=== PATIENT | male | born 1970 | race Caucasian/White ===

== ENCOUNTER 2018-11-15 10:30 | Outpatient (CLI) | payer BC ==
[~2018-11-15] VITALS: Ht 188 cm; Wt 112.5 kg
[2018-11-15] MEDS ORDERED: MULT-178 PO (10:58)
[2018-11-15] MEDS ORDERED: OMEP40CA36 PO (10:58)
[2018-11-15] MEDS ORDERED: LISI-556 PO (10:58)
[2018-11-15] MEDS ORDERED: ALLO100T PO (10:58)
== END 2018-11-15 11:51 | disposition home or self-care (01) ==
LOC: PREOP 10:30
PROVIDERS: ATTEND Internal Medicine
DX: Z01.818 Encounter for other preprocedural examination (principal)

== ENCOUNTER 2018-11-16 08:45 | Day surgery (SDC) | payer BC ==
--- NOTE | 2018-11-07 08:38 | HISTORY AND PHYSICAL ---
DATE OF SERVICE: COLONOSCOPY HISTORY AND PHYSICAL DATE OF ADMISSION: 11/16/2018. HISTORY OF PRESENT ILLNESS: The patient is a 48-year-old white male, referred by Dr. Javy Ward for his first screening colonoscopy. He may be a slightly higher than average risk due to the fact that he does have a history of multiple basal cell skin cancers. His mother and grandmother have history of breast cancer, albeit postmenopausal and his grandfather had history of basal cell skin cancers and prostate cancer. The patient denies any problems with blood in the stool, although for the past several months, he has noted as I recall after lunch his first meal of the day, bowel urgency without any associated cramping. He has not had any fecal incontinence, but has had a couple of close calls. He does not have nocturnal stool and typically does not have a problem after evening meal, passing a formed stool after lunch, again with urgency. He has had no change in weight and reflux symptoms are under control as long as he takes Prilosec. PAST MEDICAL HISTORY: Other than gastroesophageal reflux, is significant for hypertension as well as past gout for which she is on 100 mg of allopurinol daily with no attack since initiating the medication. X-ray evaluation he reports reveals some evidence for COPD. He does have some past tobaccoism, but he denies regular cough or sputum production and quit smoking in his early 30s. PAST SURGICAL HISTORY: He has had multiple basal cells excised predominantly from his back, he believes seven or eight over the past 10 years, the last one being excised in May of this year. He had tonsillectomy and adenoidectomy in the third grade. 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 He has a 20+ pack year smoking history, again quit in his early 30s. He still does chew. REVIEW OF SYSTEMS: CONSTITUTIONAL: He denies any problems with night sweats, chills, fever or change in weight. CARDIOVASCULAR: He denies chest pain, palpitations, syncope or presyncope. PULMONARY: He denies cough, wheezing, dyspnea on exertion at rest or any regular sputum production. GENITOURINARY: Pertinent for increasing nocturia over the past six months. He reports decrease in stream and dribbling. He has noted no hematuria or pyuria. He does report of intermittent erectile dysfunction, sometimes will lose an erection, but usually is still able to ejaculate. GASTROINTESTINAL: As per HPI. PHYSICAL EXAMINATION: GENERAL: Reveals a pleasant overweight white male in no acute distress. VITAL SIGNS: Weight is 248.8 pounds with a body mass index greater than 30, blood pressure of 130/100. HEENT: Unremarkable. He has a Mallampati class 2 pharyngeal configuration. No posterior pharyngeal erythema is noted. No ulceration or evidence for leukoplakia is noted. NECK: Revealed no JVD, adenopathy or bruits. CHEST: Clear to auscultation. CARDIOVASCULAR: Revealed a regular rate and rhythm without murmur, S3 or S4. ABDOMEN: Soft, supple without mass, organomegaly or tenderness. EXTREMITIES: Reveal no cyanosis, clubbing or edema. ASSESSMENT AND PLAN: 1. The patient is set up for screening colonoscopy on 11/16/2018. Prep instructions were given and questions were answered. 2. Symptoms suggest prostatism. We will be performing a digital rectal evaluation at the time of colonoscopy. 3. Hypertension. He was a little bit anxious about being here, but did discuss lisinopril dose was low and may need to consider increasing the medication based on blood pressure measurements in Dr. Ward's office. 4. Postprandial especially after lunch bowel urgency. We will keep this in consideration at the time of colonoscopy with likely rectal biopsy to rule out microscopic colitis. In addition, the patient does report as I recall intermittent Prilosec usage and there has been no improvement in his post-lunch stool urgency when off the medication. Job ID: [id number] DocumentID: [id number] Dictated Date: 11/07/2018 08:17:32 Library Associate Date: 11/07/2018 08:38:06 Dictated By: PINKY CAI MD
[~2018-11-16] VITALS: Ht 188 cm; Wt 112.5 kg
[2018-11-16] VITALS (11 sets, daily range): BP systolic 128–144; BP diastolic 73–103
[~2018-11-16 08:45] MED LIST: ALLO100T PO; LISI-556 PO; MULT-178 PO; OMEP40CA36 PO
--- OUTSIDE RECORDS SUMMARY | 2018-11-16 08:49 | XMS REPORT ---
Author Author Javy Ward [facility] Address [address] [place], [place] [id number] Care Team Providers Care Electronic Bench Technician Name Role Phone Javy Ward PCP Javy Ward PreferredProvider Allergies and Adverse Reactions Name Reaction Notes No known drug allergy Plan of Treatment Planned Activity Comments Planned Date Planned Time Plan/Goal CBC With Auto Differential 04/18/2017 12:00 AM CMP 04/18/2017 12:00 AM URIC ACID. 04/18/2017 12:00 AM URIC ACID. 04/18/2017 12:00 AM CRP 04/18/2017 12:00 AM Rheumatoid factor screening test 04/18/2017 12:00 AM basal cellcancer Medications Active Name Start Date Estimated Completion Date SIG Comments Bystolic 5 mg oral tablet 10/06/2016 take 1 tablet (5 mg) by oral route once daily omeprazole 40 mg oral capsule,delayed release(DR/EC) 10/06/2016 10/01/2017 take 1 capsule (40 mg) by oral route once daily before a meal for 90 days omeprazole 40 mg oral capsule,delayed release(DR/EC) 11/03/2016 TAKE 1 CAPSULE BY MOUTH ONCE A DAY Augmentin 875-125 mg oral tablet 04/18/2017 take 1 tablet by oral route every 12 hours for 7 days Problem List Description Status Onset Hypertension Active Vital Signs Date Time BP-Sys(mm[Hg] BP-Cara(mm[Hg]) HR(bpm) RR(rpm) Temp WT HT HC BMI BSA BMI Percentile O2 Sat(%) 04/18/2017 2:15:00 PM 140 mmHg 84 mmHg 87 bpm 20 rpm 97.8 F 255 lbs 74 in 32.74 kg/m2 2.46 m2 97 % 10/31/2016 10:21:00 AM 136 mmHg 80 mmHg 74 bpm 20 rpm 98 % 10/06/2016 3:18:00 PM 172 mmHg 100 mmHg 85 bpm 18 rpm 98 F 254.125 lbs 74 in 32.63 kg/m2 2.45 m2 99 % Social History Name Description Comments Alcohol Light Tobacco Never smoker History of Procedures Not available. Results Summary Not available. History Of Immunizations Not available. History of Past Illness Name Date of Onset Comments COPD Back pain Basal cell carcinoma of other specified sites of skin Hypertension Hypertension Oct 06 2016 3:23PM Basal cell carcinoma Oct 06 2016 3:23PM Basal cell carcinoma Oct 19 2016 10:40AM Postoperative Follow-up Oct 31 2016 10:21AM Sinusitis Apr 18 2017 2:17PM Joint pain Apr 18 2017 2:17PM Payers Insurance Name Company Name Plan Name Plan Number Policy Number Policy Group Number [facility] Date [id number] N/A History of Encounters Visit Date Visit Type Provider 04/18/2017 Office visit Javy Ward MD 10/31/2016 Office visit Hero Ching MD 10/19/2016 Office visit Hero Ching MD 10/06/2016 Office visit Javy Ward MD
--- OUTSIDE RECORDS SUMMARY | 2018-11-16 08:49 | XMS REPORT ---
Author Author Hero Ching [facility] Address [address] [place] [id number] Care Team Providers Care Lamp Stack Developer Name Role Phone Hero Ching PCP Javy Ward PreferredProvider Allergies and Adverse Reactions Name Reaction Notes No known drug allergy Plan of Treatment Planned Activity Comments Planned Date Planned Time Plan/Goal basal cellcancer Medications Active Name Start Date Estimated Completion Date SIG Comments omeprazole 40 mg oral capsule,delayed release(DR/EC) 11/03/2016 TAKE 1 CAPSULE BY MOUTH ONCE A DAY allopurinol 100 mg oral tablet 04/19/2017 take 1 tablet (100 mg) by oral route once daily Allopurinol 100MG Oral Tablet 10/17/2017 TAKE 1 TABLET BY MOUTH ONCE DAILY lisinopril 5 mg oral tablet 01/11/2018 TAKE 1 TABLET BY MOUTH ONCE A DAY omeprazole 40 mg oral capsule,delayed release(DR/EC) 07/30/2018 TAKE 1 CAPSULE BY MOUTH ONCE A DAY Discontinued Name Start Date Discontinued Date SIG Comments Bystolic 5 mg oral tablet 10/06/2016 06/29/2017 take 1 tablet (5 mg) by oral route once daily Augmentin 875-125 mg oral tablet 04/18/2017 06/29/2017 take 1 tablet by oral route every 12 hours for 7 days colchicine 0.6 mg oral tablet 04/21/2017 06/29/2017 take 2 tablets (1.2 mg) by oral route initially, then take 1 tab (0.6 mg ) hourly for 3 hours indomethacin 75 mg oral capsule, extended release 05/15/2017 06/29/2017 TAKE 3 CAPSULES BY MOUTH THREE TIMES A DAY NEEDED Problem List Description Status Onset Hypertension Active Vital Signs Date Time BP-Sys(mm[Hg] BP-Cara(mm[Hg]) HR(bpm) RR(rpm) Temp WT HT HC BMI BSA BMI Percentile O2 Sat(%) 05/14/2018 2:31:00 PM 152 mmHg 106 mmHg 87 bpm 20 rpm 97.9 F 264 lbs 74 in 33.8952 kg/m 2.5004 m 98 % 06/29/2017 11:12:00 AM 144 mmHg 96 mmHg 84 bpm 16 rpm 97.3 F 253.5 lbs 74 in 32.55 kg/m2 2.45 m2 95 % 04/18/2017 2:15:00 PM 140 mmHg 84 mmHg 87 bpm 20 rpm 97.8 F 255 lbs 74 in 32.7397 kg/m 2.4575 m 97 % 10/31/2016 10:21:00 AM 136 mmHg 80 mmHg 74 bpm 20 rpm 98 % 10/06/2016 3:18:00 PM 172 mmHg 100 mmHg 85 bpm 18 rpm 98 F 254.125 lbs 74 in 32.6274 kg/m 2.45 m2 99 % Social History Name Description Comments Alcohol Light Tobacco Never smoker History of Procedures Date Ordered Description Order Status 04/18/2017 12:00 AM COMPLETE CBC W/AUTO DIFF WBC Returned 04/18/2017 12:00 AM COMPREHEN METABOLIC PANEL Returned 04/18/2017 12:00 AM ASSAY OF BLOOD/URIC ACID Returned 04/18/2017 12:00 AM ASSAY OF URINE/URIC ACID Returned 04/18/2017 12:00 AM C-REACTIVE PROTEIN Returned 04/18/2017 12:00 AM RHEUMATOID FACTOR TEST QUAL Returned 04/18/2017 12:00 AM Decadron 8mg Injection Reviewed 04/18/2017 12:00 AM Depo-Medrol 80mg Injection Reviewed Results Summary Not available. History Of Immunizations [...] 2:17PM Joint pain Apr 18 2017 2:17PM Essential Hypertension Jun 29 2017 11:13AM Skin Neoplasm of uncertain behavior May 14 2018 2:32PM History of basal cell cancer May 14 2018 2:32PM Postoperative Follow-up Jun 04 2018 2:53PM Payers Insurance Name Company Name Plan Name Plan Number Policy Number Policy Group Number Start Date BCBS [facility] [id number] N/A History of Encounters Visit Date Visit Type Provider 06/04/2018 Office visit Hero Ching MD 05/25/2018 Surgery Hero Ching MD 05/14/2018 Office visit Hero Ching MD 06/29/2017 Office visit Javy Ward MD 04/18/2017 Office visit Javy Ward MD 10/31/2016 Office visit Hero Ching MD 10/19/2016 Office visit Hero Ching MD 10/06/2016 Office visit Javy Ward MD
--- OUTSIDE RECORDS SUMMARY | 2018-11-16 08:49 | XMS REPORT ---
Author Author Javy Ward [facility] Address [address] [place], [place] [id number] Care Team Providers Care Chief Nuclear Medicine Technologist Name Role Phone Javy Ward PCP Javy Ward PreferredProvider Allergies and Adverse Reactions Name Reaction Notes No known drug allergy Plan of Treatment Planned Activity Comments Planned Date Planned Time Plan/Goal basal cellcancer Medications Active Name Start Date Estimated Completion Date SIG Comments omeprazole 40 mg oral capsule,delayed release(DR/EC) 10/06/2016 10/01/2017 take 1 capsule (40 mg) by oral route once daily before a meal for 90 days omeprazole 40 mg oral capsule,delayed release(DR/EC) 11/03/2016 TAKE 1 CAPSULE BY MOUTH ONCE A DAY allopurinol 100 mg oral tablet 04/19/2017 take 1 tablet (100 mg) by oral route once daily lisinopril 5 mg oral tablet 06/29/2017 take 1 tablet (5 mg) by oral route once daily for 30 days Discontinued Name Start Date Discontinued Date SIG [...] HC BMI BSA BMI Percentile O2 Sat(%) 06/29/2017 11:12:00 AM 144 mmHg 96 mmHg [...] F 254.125 lbs 74 in 32.6274 kg/m 2.4532 m 99 % Social History Name Description Comments [...] 2:17PM Essential Hypertension Jun 29 2017 11:13AM Payers Insurance Name Company Name Plan Name Plan Number Policy Number Policy Group Number Start Date [id number] N/A History of Encounters Visit Date Visit Type Provider 06/29/2017 Office visit Javy Ward MD 04/18/2017 Office visit Javy Ward MD 10/31/2016 Office visit Hero Ching MD 10/19/2016 Office visit Hero Ching MD 10/06/2016 Office visit Javy Ward MD
--- OUTSIDE RECORDS SUMMARY | 2018-11-16 08:49 | XMS REPORT ---
Author Author Javy Ward [facility] Address [address] [place], [place] [id number] Care Team Providers Care Eastern Philosophy Professor Name Role Phone Javy Ward PCP Unavailable Javy Ward PreferredProvider Unavailable Allergies and Adverse Reactions Name Reaction Notes [...] daily before a meal for 90 days Problem List Not available. Vital Signs Date Time BP-Sys(mm[Hg] BP-Cara(mm[Hg]) HR(bpm) RR(rpm) Temp WT HT HC BMI BSA BMI Percentile O2 Sat(%) 10/06/2016 3:18:00 PM 172 mmHg 100 mmHg 85 bpm 18 rpm 98 F 254.125 lbs 74 in 32.63 kg/m2 2.45 m2 99 % Social History Name Description Comments Alcohol Light Tobacco Never smoker History of Procedures Not available. Results Summary Not available. History Of Immunizations Not available. History of Past Illness Name Date of Onset Comments COPD Back Pain Hypertension Oct 06 2016 3:23PM Basal cell carcinoma Oct 06 2016 3:23PM Payers Insurance Name Company Name Plan Name Plan Number Policy Number Policy Group Number [id number] N/A History of Encounters Visit Date Visit Type Provider 10/06/2016 Office visit Javy Ward MD
--- OUTSIDE RECORDS SUMMARY | 2018-11-16 08:49 | XMS REPORT ---
Author Author Hero Ching [facility] Address [address] [place], [place] [address] Care Team Providers Care Gasoline Service Attendant Name Role Phone Hero Ching PCP Javy [...] 1 TABLET BY MOUTH ONCE A DAY Name Start Date Expiration Date SIG Comments omeprazole 40 mg oral capsule,delayed release(DR/EC) 10/06/2016 10/01/2017 take 1 capsule (40 mg) by oral route once daily before a meal for 90 days Discontinued Name Start Date Discontinued Date [...] basal cell cancer May 14 2018 2:32PM Payers Insurance Name Company Name Plan Name Plan Number Policy Number Policy Group Number [id number]/A History of Encounters Visit Date Visit Type Provider 05/14/2018 Office visit Hero Ching MD 06/29/2017 Office visit Javy Ward MD 04/18/2017 Office visit Javy Ward MD 10/31/2016 Office visit Hero Ching MD 10/19/2016 Office visit Hero Ching MD 10/06/2016 Office visit Javy Ward MD
--- OUTSIDE RECORDS SUMMARY | 2018-11-16 08:49 | XMS REPORT ---
Author Author Hero Ching [facility] Address [address] [place], [place] [phone] Care Team Providers Care Conditioner Tumbler Name Role Phone Hero Ching PCP Unavailable Javy Ward PreferredProvider Unavailable Allergies [...] 1 CAPSULE BY MOUTH ONCE A DAY Problem List Description Status Onset Hypertension Active Vital Signs Date Time BP-Sys(mm[Hg] BP-Cara(mm[Hg]) HR(bpm) RR(rpm) Temp WT HT HC BMI BSA BMI Percentile O2 Sat(%) 10/31/2016 10:21:00 AM 136 mmHg 80 mmHg [...] Basal cell carcinoma Oct 19 2016 10:40AM Payers Insurance Name Company Name Plan Name Plan Number Policy Number Policy Group Number Start Date BCBS [facility] [id number] N/A History of Encounters Visit Date Visit Type Provider 10/31/2016 Office visit Hero Ching MD 10/19/2016 Office visit Hero Ching MD 10/06/2016 Office visit Javy Ward MD
--- OUTSIDE RECORDS SUMMARY | 2018-11-16 08:50 | XMS REPORT | Continuity of Care Document ---
Author Organization Unknown Address Unknown Phone Unavailable Allergies There is no data. Medications There is no data. Problems There is no data. Procedures There is no data. Results There is no data. Encounters ACCT No. Visit Date/Time Discharge Status Pt. Type Provider Facility Loc./Unit Complaint [id number] 06/04/2018 14:52:36 06/04/2018 23:59:59 Hero Leigh [id number] 05/28/2018 11:38:36 05/28/2018 23:59:59 Hero Leigh [id number] 05/14/2018 14:55:29 05/14/2018 23:59:59 Hero Leigh [id number] 06/29/2017 11:40:26 06/29/2017 23:59:59 Javy Lopez [id number] 04/19/2017 11:04:56 04/19/2017 23:59:59 Javy Lopez [id number] 10/31/2016 10:59:17 10/31/2016 23:59:59 Hero Leigh [id number] 10/19/2016 11:19:42 10/19/2016 23:59:59 Hero Legih [id number] 10/06/2016 15:47:43 10/06/2016 23:59:59 Javy Lopez
--- OUTSIDE RECORDS SUMMARY | 2018-11-16 08:50 | XMS REPORT ---
Author Author Hero Ching [facility] Address [address] [place], [place] [id number] Care Team Providers Care Bottling Line Attendant Name Role Phone Hero Ching PCP Unavailable [...] 10:40AM Postoperative Follow-up Oct 31 2016 10:21AM Payers Insurance Name Company Name Plan Name Plan Number Policy Number Policy Group Number [id number] N/A History of Encounters Visit Date Visit Type Provider 10/31/2016 Office visit Hero Ching MD 10/19/2016 Office visit Hero Ching MD 10/06/2016 Office visit Javy Ward MD
[2018-11-16] MEDS ORDERED: D5 LR IV SOLUTION 1,000 ML IV ONE (09:02)
[2018-11-16] MEDS ORDERED: D5 LR IV SOLUTION 1,000 ML IV STA (09:04)
[2018-11-16] MEDS ORDERED: LIDOCAINE JELLY 2% 6 ML SYRINGE MM PRN (09:15)
[2018-11-16] MEDS ORDERED: fentaNYL INJECTION 100 MCG/2 ML AMP IVP ONE (09:15)
[2018-11-16] MEDS ORDERED: MIDAZOLAM 2 MG/2 ML (VERSED) VIAL IVP ONE (09:15)
--- NOTE | 2018-11-16 09:33 | Pre-Op Note & Conscious Sedat ---
Pre-Operative Progress Note H&P Reviewed The H&P was reviewed, patient examined and no changes noted. Date H&P Reviewed: Nov 16, 2018 Time H&P Reviewed: 09:32 Conscious Sedation Pre-Proced ASA Score 2 For ASA 3 and 4: Consider anesthesia and medical clearance. Also, for patients with a history of failed moderate sedation consider anesthesia. Airway Lungs Heart ASA score ASA 1: a normal healthy patient ASA 2: a patient with a mild systemic disease (mid diabetes, controlled hypertension, obesity ASA 3: a patient with a severe systemic disease that limits activity (angina, COPD, prior Myocardial infarction) ASA 4: a patient with an incapacitating disease that is a constant threat to life (CHF, renal failure) ASA 5: a moribund patient not expected to survive 24 hrs. (ruptured aneurysm) ASA 6: a declared brain- patient whose organs are being harvested. For emergent operations, add the letter E after the classification Mallampati Classification Grade 2 Sedation Plan Analgesia, Amnesia, Plan communicated to team members, Discussed options with patient/fam, Discussed risks with patient/fam The patient is an appropriate candidate to undergo the planned procedure, sedation, and anesthesia. The patient immediately re-assessed prior to indication. PINKY CAI MD Nov 16, 2018 09:33
[2018-11-16] MEDS ORDERED: LIDOCAINE JELLY 2% 6 ML SYRINGE ONE (10:24)
[2018-11-16] MEDS ORDERED: fentaNYL INJECTION 100 MCG/2 ML AMP ONE ×2 (10:24→10:38)
[2018-11-16] MEDS ORDERED: MIDAZOLAM 2 MG/2 ML (VERSED) VIAL ONE ×3 (10:25→10:38)
--- NOTE | 2018-11-16 17:51 | OPERATIVE REPORT ---
DATE OF SERVICE: 11/16/2018 COLONOSCOPY SUMMARY PRIMARY CARE PHYSICIAN: Javy Ward MD and he practices in [place]. INDICATION FOR THE PROCEDURE: Screening colonoscopy. DESCRIPTION OF THE PROCEDURE: The patient was placed in left lateral decubitus position. Prior to undergoing colonoscopy, digital rectal evaluation was performed. Anal sphincter tone was normal and the perianal reflex was intact. The prostate was moderate to severely enlarged, anodular and nontender to digital inspection. No other abnormalities were noted on digital inspection of the anal canal or distal rectal vault. The colonoscope was then inserted into the rectum and under direct visualization advanced to the cecum. The cecum was identified by identification of the ileocecal valve and cecal strap. Photographic documentation was obtained. Careful inspection was made as the colonoscope was withdrawn. FINDINGS: There was no evidence for internal or external hemorrhoids and the rectum was unremarkable. One moderate size sigmoid diverticulum was present without evidence for diverticulitis. No other sigmoid colonic abnormalities were appreciated. The descending colon and splenic flexure were unremarkable. Present in the mid transverse colon was a 4 mm sessile polyp. It was photographed and biopsied and ablated with no subsequent blood loss. The remainder of the transverse colon, hepatic flexure, ascending colon and cecum were unremarkable. ASSESSMENT: One small sessile polyp was removed from the proximal transverse colon. As long as there are no surprises on histopathology report, would advocate consideration for repeat screening colonoscopy in 5 years. Digital rectal evaluation was compatible with moderate to severe BPH, which has been symptomatic for the patient. Advised that he should return to discuss treatment options with Dr. Ward and also recommended a PSA blood test as the patient reports that both of his grandfathers were diagnosed with prostate cancer later in life. I thank you for the referral of this pleasant gentleman. Sincerely, Job ID: [id number] DocumentID: [id number] Dictated Date: 11/16/2018 11:32:47 Tank Truck Loader Date: 11/16/2018 17:49:09 Dictated By: PINKY CAI MD [facility]
== END 2018-11-16 11:40 | disposition home or self-care (01) ==
LOC: ENDO 08:45
PROVIDERS: ATTEND Internal Medicine
DX: Z12.11 Encounter for screening for malignant neoplasm of colon (principal); D12.3 Benign neoplasm of transverse colon; K57.30 Diverticulosis of large intestine without perforation or abscess without bleeding; K21.9 Gastro-esophageal reflux disease without esophagitis; I10 Essential (primary) hypertension; M10.9 Gout, unspecified; Z87.891 Personal history of nicotine dependence; Z85.828 Personal history of other malignant neoplasm of skin; Z79.899 Other long term (current) drug therapy; Z80.3 Family history of malignant neoplasm of breast; Z80.8 Family history of malignant neoplasm of other organs or systems; Z80.42 Family history of malignant neoplasm of prostate; Z84.2 Family history of other diseases of the genitourinary system
CPT/HCPCS: 88305